=== PATIENT | male | born 1940 | race Caucasian/White ===

== ENCOUNTER → 2020-02-15 | Outpatient (CLI) | payer MEDICARE | END | disposition home or self-care (01) | LOC: CFH 14:36 | PROVIDERS: ATTEND Nurse Practitioner | DX: J43.9 Emphysema, unspecified (principal); I25.10 Atherosclerotic heart disease of native coronary artery without angina pectoris | CPT/HCPCS: 71250 ==

== ENCOUNTER 2021-02-05 10:45 | Outpatient (CLI) | payer MEDICARE ==
[2021-02-05] MEDS ORDERED: FORM20VI INH (11:33)
[2021-02-05] MEDS ORDERED: CHOL200052 PO (11:33)
[2021-02-05] MEDS ORDERED: TAMS-11 PO (11:33)
[2021-02-05] MEDS ORDERED: OMEP-110 PO (11:33)
[2021-02-05] MEDS ORDERED: CALC1CAP8 PO (11:33)
== END 2021-02-05 23:59 | disposition home or self-care (01) ==
LOC: STAR 10:45
PROVIDERS: ATTEND Internal Medicine Gastroenterology
DX: Z01.818 Encounter for other preprocedural examination (principal); R63.4 Abnormal weight loss; K52.9 Noninfective gastroenteritis and colitis, unspecified; K92.1 Melena; K22.70 Barrett's esophagus without dysplasia; D50.9 Iron deficiency anemia, unspecified; Z20.822 Contact with and (suspected) exposure to COVID-19; Z99.81 Dependence on supplemental oxygen
CPT/HCPCS: 93005; U0003; U0005

== ENCOUNTER 2021-02-11 07:33 | Day surgery (SDC) | payer MEDICARE ==
[~2021-02-11] VITALS: Ht 170.2 cm; Wt 53.6 kg
[~2021-02-11 07:33] MED LIST: ACETAMINOPHEN 325 MG TABLET PO PRN; CALC1CAP8 PO; CHOL200052 PO; EPHEDRINE 50 MG/ML, 1ML IVPush PRN; FENTANYL PF 100 MCG/2ML IV PRN; FORM20VI INH; LABETALOL 5MG/ML, 20ML IV PRN; OMEP-110 PO; ONDANSETRON 2MG/ML, 2ML IVPush PRN; PROMETHAZINE 25 MG/ML, 1ML IVPush PRN; TAMS-11 PO; hydrALAzine 20 MG/ML, 1ML IV PRN
[2021-02-11] MEDS ORDERED: BUDE0.25 NEB (08:03)
[2021-02-11] MEDS ORDERED: CHLORHEXIDINE 15 ML UDC ONE (08:09)
[2021-02-11 08:24] VITALS: BP 131/78
[2021-02-11] MEDS ORDERED: LACTATED RINGERS 1,000 ML IV SCH (08:30)
[2021-02-11] MEDS ORDERED: CHLORHEXIDINE 15 ML UDC PO ONE (08:30)
[2021-02-11] MEDS ORDERED: EPHEDRINE 50 MG/ML, 1ML ONE (09:23)
[2021-02-11] MEDS ORDERED: PROPOFOL 50 ML ONE (09:24)
== END 2021-02-11 11:10 | disposition home or self-care (01) ==
LOC: OUT 07:33
PROVIDERS: ATTEND Internal Medicine Gastroenterology
DX: D64.9 Anemia, unspecified (principal); R19.7 Diarrhea, unspecified; D12.2 Benign neoplasm of ascending colon; K55.20 Angiodysplasia of colon without hemorrhage; K20.90 Esophagitis, unspecified without bleeding; K29.50 Unspecified chronic gastritis without bleeding; J44.9 Chronic obstructive pulmonary disease, unspecified; F17.210 Nicotine dependence, cigarettes, uncomplicated; Z79.899 Other long term (current) drug therapy; Z86.010 Personal history of colon polyps; Z95.0 Presence of cardiac pacemaker; Z98.890 Other specified postprocedural states
CPT/HCPCS: 43239; 45380; 45385; 45388; 88305; J2704; J7120